=== PATIENT | female | born 1990 | race Caucasian/White ===

== ENCOUNTER 2019-02-06 00:50 | Emergency (ER) | payer OTHER ==
[~2019-02-06] VITALS: Ht 175.3 cm; Wt 86.2 kg
[~2019-02-06 00:50] MED LIST: PREDNISONE20 MG PO; ZYRTEC10 MG PO
[2019-02-06] MEDS ORDERED: NORFLEX100MG PO (04:43)
[2019-02-06] MEDS ORDERED: KETO10TA2 PO (04:43)
== END 2019-02-06 05:19 | disposition home or self-care (01) ==
LOC: ER 00:50
DX: M54.5 Low back pain (principal)

== ENCOUNTER 2024-06-02 21:50 | Inpatient (IN) | payer OTHER ==
[~2024-06-02] VITALS: Ht 175.3 cm; Wt 119.7 kg
[2024-06-02 21:33] VITALS: BP 122/80
[~2024-06-02 21:50] MED LIST changes: +KETO10TA2 PO; +NORFLEX100MG PO
[2024-06-02] MEDS ORDERED: LABETALOL HCL200 MG PO (21:53)
[2024-06-02] MEDS ORDERED: PRENATAL PLUS1 EAC1 PO (21:54)
[2024-06-02] MEDS ORDERED: RINGERS SOLUTION,LACTATED 1,000 ML IV SCH (22:15)
[2024-06-02] MEDS ORDERED: BETAMETHASONE ACETATE,SOD PHOS 30 MG/5 ML ML IM ONE (22:15)
[2024-06-02 23:28] LABS: INR 1.02; PROTHROMBIN TIME 11.1 SECONDS (9.0-11.5)
[2024-06-02 23:33] LABS: ALBUMIN 2.5 gm/dL (3.4-5.0); BILIRUBIN TOTAL 0.22 mg/dL (0.3-1.2); CREATININE SERUM 0.54 mg/dL (0.55-1.02); GFR 130.02; GLOBULINA 3.7 G/DL (2.4-3.5); POTASSIUM 3.96 mEq/L (3.5-5.1); TOTAL PROTEIN 6.2 gm/dL (6.4-8.2)
[2024-06-02 23:43] LABS: HEMATOCRIT 31.7 % (36.0-45.00); HEMOGLOBIN 10.7 g/dL (12.0-15.00); MEAN CELL VOLUME 84.9 fL (80.00-100.00); MEAN CORPUSCULAR HEMOGLOBIN 28.6 pg (27.00-32.0); MEAN CORPUSCULAR HGB CONC 33.7 g/dl (32.0-36.0); PLATELET COUNT 198 K/uL (150-450); RED BLOOD COUNT 3.73 M/uL (4.00-6.00); RED CELL DISTRIBUTION WIDTH 13.6 % (11.5-14.5)
[2024-06-02 23:57] VITALS: BP 123/75
[2024-06-03] VITALS (7 sets, daily range): BP systolic 118–135; BP diastolic 66–79; O2SAT 98–99
[2024-06-03] MEDS ORDERED: LABETALOL HCL 200 MG TABLET PO SCH (09:00)
[2024-06-03] MEDS ORDERED: BETAMETHASONE ACETATE,SOD PHOS 30 MG/5 ML ML IM NR (22:20)
[2024-06-04 05:17] VITALS: BP 128/71
[2024-06-04 06:27] VITALS: BP 126/69; O2SAT 96
== END 2024-06-04 09:39 | disposition home or self-care (01) | DRG 832 ==
LOC: LDR 21:50
PROVIDERS: ADMIT Obstetrics & Gynecology Maternal & Fetal Medicine; ATTEND Obstetrics & Gynecology Maternal & Fetal Medicine
PROC: 4A1HXCZ Monitoring of Products of Conception, Cardiac Rate, External Approach (ICD-10-PCS; principal; 2024-06-02)
PROC: BY4FZZZ Ultrasonography of Third Trimester, Single Fetus (ICD-10-PCS; 2024-06-03)
PROC: BU4CZZZ Ultrasonography of Uterus and Ovaries (ICD-10-PCS; 2024-06-03)
DX: O46.8X3 Other antepartum hemorrhage, third trimester (principal); O10.013 Pre-existing essential hypertension complicating pregnancy, third trimester; O26.843 Uterine size-date discrepancy, third trimester; O36.8130 Decreased fetal movements, third trimester, not applicable or unspecified; O26.853 Spotting complicating pregnancy, third trimester; Z3A.31 31 weeks gestation of pregnancy; Z20.822 Contact with and (suspected) exposure to COVID-19

== ENCOUNTER 2024-06-17 08:02 | Outpatient (CLI) | payer OTHER ==
[~2024-06-17 08:02] MED LIST changes: +LABETALOL HCL200 MG PO; +PRENATAL PLUS1 EAC1 PO
== END 2024-06-17 09:04 | disposition home or self-care (01) ==
LOC: NST 08:02
PROVIDERS: ATTEND Obstetrics & Gynecology
DX: Z34.83 Encounter for supervision of other normal pregnancy, third trimester (principal)

== ENCOUNTER 2024-06-24 08:46 | Outpatient (CLI) | payer OTHER | END 2024-06-24 10:30 | disposition home or self-care (01) | LOC: NST 08:46 | PROVIDERS: ATTEND Obstetrics & Gynecology Gynecology | DX: Z34.83 Encounter for supervision of other normal pregnancy, third trimester (principal) ==

== ENCOUNTER 2024-07-02 11:50 | Outpatient (CLI) | payer OTHER | END 2024-07-02 13:10 | disposition home or self-care (01) | LOC: NST 11:50 | PROVIDERS: ATTEND Obstetrics & Gynecology Maternal & Fetal Medicine | DX: Z34.83 Encounter for supervision of other normal pregnancy, third trimester (principal) ==

== ENCOUNTER 2024-07-09 10:04 | Outpatient (CLI) | payer OTHER | END 2024-07-09 11:19 | disposition home or self-care (01) | LOC: NST 10:04 | PROVIDERS: ATTEND Obstetrics & Gynecology Maternal & Fetal Medicine | DX: Z34.83 Encounter for supervision of other normal pregnancy, third trimester (principal) ==

== ENCOUNTER 2024-07-16 08:56 | Outpatient (CLI) | payer OTHER | END 2024-07-16 09:43 | disposition home or self-care (01) | LOC: NST 08:56 | PROVIDERS: ATTEND Obstetrics & Gynecology Maternal & Fetal Medicine | DX: Z34.83 Encounter for supervision of other normal pregnancy, third trimester (principal) ==

== ENCOUNTER 2024-07-16 13:37 | Inpatient (IN) | payer OTHER ==
[~2024-07-16] VITALS: Ht 175.3 cm; Wt 127.0 kg
[2024-07-22 17:17] VITALS: BP 146/76
[2024-07-22 18:07] LABS: HEMATOCRIT 34.9 % (36.0-45.00); HEMOGLOBIN 12.2 g/dL (12.0-15.00); MEAN CELL VOLUME 83.6 fL (80.00-100.00); MEAN CORPUSCULAR HEMOGLOBIN 29.3 pg (27.00-32.0); MEAN CORPUSCULAR HGB CONC 35.1 g/dl (32.0-36.0); PLATELET COUNT 205 K/uL (150-450); RED BLOOD COUNT 4.18 M/uL (4.00-6.00)
[2024-07-22 18:07] LABS: URINE APPEARANCE Clear; URINE BILIRRUBIN Negative (NEGATIVE); URINE BLOOD Small; URINE COLOR Yellow; URINE GLUCOSE Negative (NEGATIVE); URINE KETONE Negative (NEGATIVE); URINE LEUKOCYTE Small; URINE NITRATE Negative; URINE PROTEIN Negative (NEGATIVE); URINE UROBILINOGEN 0.2 E.U./dl
[2024-07-22 18:10] LABS: URINE BACTERIA 193.9 uL (0.0-1933); URINE EPITHELIAL CELLS 24.4 uL (0.0-38.8); URINE RBC 3.6 uL (0.0-20.8); URINE WBC 32.2 uL (0.0-23.2)
[2024-07-22 18:13] LABS: URINE CAST 0.15 uL (0.0-1.40)
[2024-07-22 18:15] LABS: RED CELL DISTRIBUTION WIDTH 17.2 % (11.5-14.5)
[2024-07-22 18:38] LABS: ALBUMIN 2.6 gm/dL (3.4-5.0); BILIRUBIN TOTAL 0.22 mg/dL (0.3-1.2); CALCIUM 9.2 mg/dL (8.5-10.1); CREATININE SERUM 0.56 mg/dL (0.55-1.02); GFR 123.92; POTASSIUM 4.46 mEq/L (3.5-5.1); TOTAL PROTEIN 6.6 gm/dL (6.4-8.2)
[2024-07-22 18:48] LABS: INR 0.97; PARTIAL THROMBOPLASTIN TIME 25.5 SECONDS (22.0-34.0); PROTHROMBIN TIME 10.6 SECONDS (9.0-11.5)
[2024-07-22 20:20] VITALS: BP 154/78
[2024-07-22] MEDS ORDERED: LABETALOL HCL 300 MG TABLET PO SCH (20:30)
[2024-07-23 00:01] VITALS: BP 140/69
[2024-07-23] MEDS ORDERED: LABETALOL 31 MG/1 ML IV (00:11)
[2024-07-23] MEDS ORDERED: AMPICILLIN SODIUM 2,000 MG VIAL IV ONE (00:15)
[2024-07-23] MEDS ORDERED: RINGERS SOLUTION,LACTATED 1,000 ML IV SCH (00:15)
[2024-07-23] MEDS ORDERED: AMPICILLIN SODIUM 1,000 MG VIAL IV SCH ×2 (01:00)
[2024-07-23 04:00] VITALS: BP 140/69
[2024-07-23] MEDS ORDERED: OXYTOCIN 500 ML IV ONE (06:45)
[2024-07-23 08:16] VITALS: BP 131/74
[2024-07-23 11:49] VITALS: BP 138/68
[2024-07-23 15:25] VITALS: BP 157/75
[2024-07-23] MEDS ORDERED: CARBOPROST TROMETHAMINE 250 MCG/ML AMPUL IM ONE ×2 (19:00→20:30)
[2024-07-23] MEDS ORDERED: OxyCODONE HCL/APAP UD (PERCOCET) PO PRN (20:15)
[2024-07-23] MEDS ORDERED: OXYTOCIN 1,000 ML IV SCH (20:15)
[2024-07-23] MEDS ORDERED: IBUprofen 400 MG TABLET PO PRN (20:15)
[2024-07-23] MEDS ORDERED: METHYLERGONOVINE MALEATE 0.2 MG/ML AMPUL IV ONE (20:30)
[2024-07-23 20:52] LABS: HEMATOCRIT 31.4 % (36.0-45.00); HEMOGLOBIN 10.7 g/dL (12.0-15.00); MEAN CELL VOLUME 84.5 fL (80.00-100.00); MEAN CORPUSCULAR HEMOGLOBIN 28.9 pg (27.00-32.0); MEAN CORPUSCULAR HGB CONC 34.2 g/dl (32.0-36.0); PLATELET COUNT 173 K/uL (150-450); RED BLOOD COUNT 3.72 M/uL (4.00-6.00); RED CELL DISTRIBUTION WIDTH 16.5 % (11.5-14.5)
[2024-07-23] MEDS ORDERED: CHLORHEXIDINE GLUCONATE 120 ML BOTTLE TOP ONE (22:30)
[2024-07-23] MEDS ORDERED: ERYTHROMYCIN BASE OPHT 1GM EACH TUBE OP ONE (22:30)
[2024-07-24 00:04] VITALS: BP 140/73
[2024-07-24 02:53] VITALS: BP 118/82
[2024-07-24 07:02] LABS: MEAN CELL VOLUME 85.1 fL (80.00-100.00); MEAN CORPUSCULAR HGB CONC 33.9 g/dl (32.0-36.0); PLATELET COUNT 171 K/uL (150-450); RED BLOOD COUNT 3.06 M/uL (4.00-6.00); RED CELL DISTRIBUTION WIDTH 16.9 % (11.5-14.5)
[2024-07-24 07:09] LABS: HEMOGLOBIN 8.8 g/dL (12.0-15.00); MEAN CORPUSCULAR HEMOGLOBIN 28.7 pg (27.00-32.0)
[2024-07-24] MEDS ORDERED: HYDROCORTISONE 2.5% 30 GM TUBE RECTAL SCH (09:41)
[2024-07-24 10:19] VITALS: BP 123/76
[2024-07-24 14:02] VITALS: BP 119/69
[2024-07-24 16:21] VITALS: BP 139/66
[2024-07-25 01:33] VITALS: BP 130/74
[2024-07-25 10:35] LABS: MEAN CELL VOLUME 86.2 fL (80.00-100.00); MEAN CORPUSCULAR HGB CONC 33.4 g/dl (32.0-36.0); PLATELET COUNT 159 K/uL (150-450); RED BLOOD COUNT 2.57 M/uL (4.00-6.00); RED CELL DISTRIBUTION WIDTH 17.3 % (11.5-14.5)
[2024-07-25 10:37] LABS: HEMATOCRIT 22.2 % (36.0-45.00); MEAN CORPUSCULAR HEMOGLOBIN 28.7 pg (27.00-32.0)
[2024-07-25 10:38] LABS: HEMOGLOBIN 7.4 g/dL (12.0-15.00)
[2024-07-25 13:19] VITALS: BP 121/82
[2024-07-25 16:25] VITALS: BP 133/82
[2024-07-26] VITALS: BP 133/77
[2024-07-26 08:54] VITALS: BP 134/64
[2024-07-26 09:44] LABS: HEMATOCRIT 24.4 % (36.0-45.00); MEAN CELL VOLUME 84.4 fL (80.00-100.00); MEAN CORPUSCULAR HGB CONC 35.6 g/dl (32.0-36.0); PLATELET COUNT 171 K/uL (150-450); RED CELL DISTRIBUTION WIDTH 16.3 % (11.5-14.5)
[2024-07-26 09:52] LABS: HEMOGLOBIN 8.7 g/dL (12.0-15.00)
== END 2024-07-26 11:34 | disposition home or self-care (01) | DRG 806 ==
LOC: LDR 07-22 14:52 → OB/GYN 07-23 13:45 → LDR 07-23 15:35 → OB/GYN 07-23 21:47
PROVIDERS: Obstetrics & Gynecology; Obstetrics & Gynecology Gynecology; ADMIT Obstetrics & Gynecology Maternal & Fetal Medicine; ATTEND Obstetrics & Gynecology Maternal & Fetal Medicine
PROC: 4A1HXCZ Monitoring of Products of Conception, Cardiac Rate, External Approach (ICD-10-PCS; 2024-07-22)
PROC: 10E0XZZ Delivery of Products of Conception, External Approach (ICD-10-PCS; principal; 2024-07-23)
PROC: 0W8NXZZ Division of Female Perineum, External Approach (ICD-10-PCS; 2024-07-23)
PROC: BU4CZZZ Ultrasonography of Uterus and Ovaries (ICD-10-PCS; 2024-07-25)
PROC: 30233N1 Transfusion of Nonautologous Red Blood Cells into Peripheral Vein, Percutaneous Approach (ICD-10-PCS; 2024-07-25)
DX: O67.8 Other intrapartum hemorrhage (principal); O72.1 Other immediate postpartum hemorrhage; Z37.0 Single live birth; Z3A.38 38 weeks gestation of pregnancy; Z20.822 Contact with and (suspected) exposure to COVID-19

== ENCOUNTER 2024-07-22 08:02 | Outpatient (CLI) | payer OTHER ==
[2024-07-23] MEDS ORDERED: LABETALOL 31 MG/1 ML IV (00:11)
== END 2024-07-22 09:06 | disposition home or self-care (01) ==
LOC: NST 08:02
PROVIDERS: ATTEND Obstetrics & Gynecology Maternal & Fetal Medicine
DX: Z34.83 Encounter for supervision of other normal pregnancy, third trimester (principal)